=== PATIENT | female | born 1985 | race Caucasian/White ===

== ENCOUNTER 2017-03-29 00:01 | Emergency (ER) | payer OTHER ==
[~2017-03-29] VITALS: Ht 157.5 cm; Wt 75.7 kg
[2017-03-29] MEDS ORDERED: PRENATAL TABLE1 EACH (02:46)
[2017-03-29] MEDS ORDERED: CYCLOBENZAPRINE10 MG PO (04:22)
== END 2017-03-29 04:37 | disposition home or self-care (01) ==
LOC: ER 00:01
DX: O20.0 Threatened abortion (principal); O26.892 Other specified pregnancy related conditions, second trimester; M62.838 Other muscle spasm; Z34.81 Encounter for supervision of other normal pregnancy, first trimester

== ENCOUNTER 2017-07-27 16:04 | Outpatient (CLI) | payer OTHER ==
[~2017-07-27 16:04] MED LIST: CYCLOBENZAPRINE10 MG PO; PRENATAL TABLE1 EACH
[2017-07-27] MEDS ORDERED: PRENATAL TABLE1 EAC1 PO (17:12)
== END 2017-07-27 22:58 | disposition home or self-care (01) ==
LOC: OBS/DEL 16:04
DX: O76 Abnormality in fetal heart rate and rhythm complicating labor and delivery (principal); O23.43 Unspecified infection of urinary tract in pregnancy, third trimester; Z34.03 Encounter for supervision of normal first pregnancy, third trimester

== ENCOUNTER 2017-08-11 13:00 | Inpatient (IN) | payer OTHER ==
[~2017-08-11] VITALS: Ht 157.5 cm; Wt 4.1 kg
[~2017-08-11 13:00] MED LIST changes: +PRENATAL TABLE1 EAC1 PO
[2017-08-14] MEDS ORDERED: MACROBID 100 M100 MG PO (17:54)
[2017-08-17] MEDS ORDERED: PERCOCET 5-3251 EACH PO (13:01)
[2017-08-17] MEDS ORDERED: SURFAK240 M1 PO (13:01)
== END 2017-08-18 16:09 | DRG 766 ==
LOC: LDR 08-14 15:40 → OB/GYN 08-14 21:15 → LDR 08-23 13:00
PROVIDERS: Obstetrics & Gynecology
PROC: 0UL70ZZ Occlusion of Bilateral Fallopian Tubes, Open Approach (ICD-10-PCS; 2017-08-14)
PROC: 4A1HXCZ Monitoring of Products of Conception, Cardiac Rate, External Approach (ICD-10-PCS; 2017-08-14)
PROC: 10D00Z1 Extraction of Products of Conception, Low, Open Approach (ICD-10-PCS; principal; 2017-08-14 16:30)
DX: O14.14 Severe pre-eclampsia complicating childbirth (principal); O75.3 Other infection during labor; Z3A.38 38 weeks gestation of pregnancy; Z37.0 Single live birth; Z30.2 Encounter for sterilization

== ENCOUNTER 2017-08-14 14:43 | Outpatient (CLI) | payer OTHER ==
[2017-08-14] MEDS ORDERED: MACROBID 100 M100 MG PO (17:54)
== END 2017-08-14 15:38 | disposition still patient (30) ==
LOC: OBS/DEL 14:43
DX: O47.1 False labor at or after 37 completed weeks of gestation (principal); O34.211 Maternal care for low transverse scar from previous cesarean delivery; Z34.03 Encounter for supervision of normal first pregnancy, third trimester